=== PATIENT | female | born 1985 | race American Indian/Alaskan Native ===

== ENCOUNTER 2017-07-21 18:48 | Emergency (ER) | payer MEDICAID ==
[2017-07-21 19:14] VITALS: BMI 27.7
--- NOTE | 2017-07-22 00:23 | OBDCSUM ---
Datetime: 07/21/2017 23:50 Discharged to, Provider: Home Follow up at, Provider: [facility] Disch Instr Activity: Normal activity Disch Instr Diet: Regular Discharge Instructions, Provider: Routine instructions given Discharge Diagnosis, Provider: False Labor - Undelivered Discharge Time: 07/21/2017 23:50 Follow up in weeks, Provider: 07/23/2017 Disch Referrals: None
--- NOTE | 2017-07-22 00:23 | OBHP ---
Datetime: 07/21/2017 20:27 IP Adm Impression: Term, intrauterine IP Admit Plan: Observation/Evaluation; Discharge home Admit Comment, IP Provider: 31 yo with IUP at 39+5 weeks presented to [facility] with complaint of lower abdominal cramping and low back pain. States she has been having similar cramping for the past 2 weeks but it is stronger today. Denies regular contractions, denies vaginal bleeding, denies loss of fluid, reports good movement. ROS: denies headache, blurry vision, chest pain, shortness of breath, nausea, vomiting, diarrhea, pain/burning w/ urination. care: Dr. Shepherd; had last apt today 2 pm, on exam states she was 1 cm dilated OBGYN hx: NVD 2006 and 2011; 1 SAB Med hx: none Surg hx: none Social hx: denies tobacco, alcohol, drug use Allergies: NKDA Meds: iron, PNV Fam hx: M-MS, MGF prostate cancer SVE: 1-2 cm, 60% effaced, -2 station A/P 31 at 39.5 weeks GA, not in active labor at this time Pt to drink water, re-eval in 3-4hrs Re-eval 23:45 FHR reactive SVE: 1-2 cm, 60% effaced, -2; no changes from previous exam D/c home with labor precautions and advised to stay hydrated Pt seen/discussed w/ Dr. Leeann [email or web address] OB Hospitalist Addendum: Pt seen and examined by me. Agree w/ above. 31 yo at 39+5 wks w / lower abdominal pain and low back pain. VE 2/65/-2 at 8:44 pm. Exam unchanged at 11:47 pm. NST r eactive. Pt discharged home w/ labor precautions. Pt is scheduled to come in for induction of labor on Fri., 07/23/2017. (ES) Extremities - PN: Normal Abdomen - PN: Normal Back - PN: Normal Breast - PN: Not Done Lungs - PN: Normal Heart - PN: Normal Thyroid - PN: Not Done Neurologic - PN: Normal HEENT - PN: Normal General - PN: Normal Comments, ACOG Physical Exam: SVE: 1-2cm, 60% effaced, -2 Vital Signs Provider: Reviewed IP Chief Complaint: Maternal discomfort Dilatation, Provider: 1 Effacement, Provider: 65 Station, Provider: -2 Genitourinary Exam: Normal
[2017-07-22 07:57] VITALS: BP 122/66; PULSE 84; RESP 18; TEMP 98.2; O2SAT 98
== END 2017-07-21 23:55 | disposition home or self-care (01) ==
LOC: H.EROB2 18:48
DX: O47.1 False labor at or after 37 completed weeks of gestation (principal); Z3A.39 39 weeks gestation of pregnancy; O26.93 Pregnancy related conditions, unspecified, third trimester; R10.2 Pelvic and perineal pain; M54.5 Low back pain

== ENCOUNTER 2017-07-23 19:14 | Inpatient (IN) | payer MEDICAID ==
[2017-07-23] MEDS ORDERED: Oxytocin 30 units/LR 500ML 30 U/500 ML BAG IV PRN (19:20)
[2017-07-23] MEDS ORDERED: Lactated Ringer's 1,000 ML IV SCH (19:30)
[2017-07-23 20:04] LABS: BASO % 0.6 % (0.0-2.0); EOS # 0.2 K/uL (0.0-0.7); EOS % 4.2 % (0.0-4.0); HEMOGLOBIN 10.8 g/dL (12.0-16.0); LYMPH # 1.3 K/uL (1.0-4.3); LYMPH % 23.6 % (20.0-40.0); MEAN CELL VOLUME 92.3 fl (81.0-99.0); MEAN CORPUSCULAR HEMOGLOBIN 32.2 pg (27.0-31.0); MEAN CORPUSCULAR HGB CONC 34.9 g/dL (33.0-37.0); MEAN PLATELET VOLUME 9.8 fl (7.2-11.7); MONO # 0.8 K/uL (0.0-0.8); MONO % 14.7 % (0.0-10.0); NEUT # 3.1 K/uL (1.8-7.0); NEUT % 56.9 % (50.0-75.0); NRBC % 0.1 % (0.0-0.0); RBC 3.35 Mil/uL (3.80-5.20); RED CELL DISTRIBUTION WIDTH 13.6 % (11.5-14.5); WHITE BLOOD COUNT 5.4 K/uL (4.8-10.8)
[2017-07-23] MEDS ORDERED: Penicillin G 5 Million Unit Vial IVPB ONE (20:30)
[2017-07-23] MEDS: Lactated Ringer's 1,000 ML IV SCH (20:30)
--- NOTE | 2017-07-23 22:51 | OBHP ---
Datetime: 07/23/2017 19:25 IP Adm Impression: Term, intrauterine IP Admit Plan: Admit to unit; Initiate labor induction protocol Admit Comment, IP Provider: 31 yo with IUP at 40 weeks gestational age by 7 week u/s, [facility] 07/23/17, presented to [facility] today for scheduled induction of labor for IUGR. Denies regular contractions, denies vaginal bleeding, denies loss of fluid, reports good movement. ROS: denies headache, blurry vision, chest pain, shortness of breath, nausea, vomiting, diarrhea, pain/burning w/ urination. care: Dr. Shepherd GBS positive, 3rd trimester HIV neg, RPR neg, ABO O pos, antibody neg, rubella immune, HbsAg neg OBGYN hx: NVD 2006 and 2011; 1 SAB Med hx: none Surg hx: none Social hx: denies tobacco, alcohol, drug use Allergies: NKDA Meds: iron, PNV Fam hx: MS, prostate cancer PE: Gen: alert, awake, no acute distress CV: S1S2,RRR Resp: clear breath sounds, normal effort Abd: gravid, +BS Ext: no deformities, no edema A/P 31 at 40 weeks gestational age, for scheduled induction for IUGR. Admit to unit; induction. [email or web address] patient was seen with resident I agree with the note Extremities - PN: Normal Abdomen - PN: Normal Back - PN: Normal Lungs - PN: Normal Heart - PN: Normal Neurologic - PN: Normal HEENT - PN: Normal General - PN: Normal FHR - Baseline A Provider: 130 Gestation - Est Wks by US: 40.0 IP Hx Assessment: The History has been Reviewed and is Current EGA AdmitDate IP: 40.0 Vital Signs Provider: Reviewed; Within Normal Limits IP Indication for Induction: IUGR IP Chief Complaint: Scheduled induction of labor NICHD Variability Prov Fetus A: Moderate 6-25bpm NICHD Accel Fetus A IP Provider: [id number] FHR Category Provider Fetus A: Category I
[2017-07-24] MEDS ORDERED: Penicillin G 5 Million Unit Vial IVPB ONE (01:55)
[2017-07-24] MEDS: Lactated Ringer's 1,000 ML IV SCH (02:08)
[2017-07-24 03:13] VITALS: O2SAT 99
[2017-07-24] MEDS ORDERED: Oxycodone/Acetaminophen 5/325 mg Tab PO PRN ×4 (04:45→06:43)
[2017-07-24] MEDS ORDERED: Benzocaine/Menthol SPRAY TOP PRN ×2 (04:45→06:43)
[2017-07-24] MEDS: Multivitamin With Minerals Tab PO SCH (09:00)
[2017-07-24] MEDS ORDERED: Multivitamin With Minerals Tab PO SCH (09:00)
[2017-07-24 12:54] LABS: BASO # 0.1 K/uL (0.0-0.2); BASO % 0.6 % (0.0-2.0); EOS # 0.1 K/uL (0.0-0.7); EOS % 1.3 % (0.0-4.0); HEMOGLOBIN 11.1 g/dL (12.0-16.0); LYMPH # 1.6 K/uL (1.0-4.3); LYMPH % 16.5 % (20.0-40.0); MEAN CELL VOLUME 92.4 fl (81.0-99.0); MEAN CORPUSCULAR HEMOGLOBIN 31.8 pg (27.0-31.0); MEAN CORPUSCULAR HGB CONC 34.4 g/dL (33.0-37.0); MEAN PLATELET VOLUME 9.5 fl (7.2-11.7); MONO # 1.1 K/uL (0.0-0.8); MONO % 11.8 % (0.0-10.0); NEUT # 6.7 K/uL (1.8-7.0); NEUT % 69.8 % (50.0-75.0); RBC 3.51 Mil/uL (3.80-5.20); RED CELL DISTRIBUTION WIDTH 13.5 % (11.5-14.5); WHITE BLOOD COUNT 9.6 K/uL (4.8-10.8)
[2017-07-25] MEDS: Multivitamin With Minerals Tab PO SCH (08:12)
--- NOTE | 2017-07-26 07:11 | OBDCSUM ---
Datetime: 07/26/2017 07:09 Discharged to, Provider: Home Follow up at, Provider: Dr Shepherd Disch Instr Activity: Normal activity Disch Instr Diet: Regular Discharge Instructions, Provider: Routine instructions given Discharge Diagnosis, Provider: Term Delivered Discharge Time: 07/26/2017 07:09 Follow up in weeks, Provider: 4-6weeks Disch Referrals: None Contraception discussed, Prov: Yes Discharge Comment, Provider: S/P , Clinically Stable Discharge Diagnosis Prov Other: S/P , Clinically Stable
[2017-07-26] MEDS: Multivitamin With Minerals Tab PO SCH (09:02)
[2017-07-26 19:12] VITALS: BP 116/64; PULSE 81; RESP 20; TEMP 98.2
== END 2017-07-26 13:45 | disposition home or self-care (01) | DRG 373 ==
LOC: H.L&D 19:20 → H.OB/GYN 07-24 06:00
PROVIDERS: ADMIT Obstetrics & Gynecology Gynecology; ATTEND Obstetrics & Gynecology Gynecology
PROC: 4A1HXCZ Monitoring of Products of Conception, Cardiac Rate, External Approach (ICD-10-PCS; 2017-07-23)
PROC: 10E0XZZ Delivery of Products of Conception, External Approach (ICD-10-PCS; principal; 2017-07-24)
DX: O36.5930 Maternal care for other known or suspected poor fetal growth, third trimester, not applicable or unspecified (principal); Z3A.40 40 weeks gestation of pregnancy; Z37.0 Single live birth